=== PATIENT | female | born 2000 | race Asian ===

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

== ENCOUNTER 2023-07-09 15:47 | Emergency (ER) | payer OTHER, SELFPAY ==
[2023-07-09 15:51] VITALS: BP 102/68; PULSE 108; RESP 18; TEMP 36.4; O2SAT 99; BMI 24.2
--- NOTE | 2023-07-09 15:57 | ED_ITS ---
HPI - General Adult General Date Seen: 07/09/23 Chief complaint: Nausea/Vomiting Stated complaint: possible food poisoning Time Seen by Provider: 07/09/23 15:50 History of Present Illness HPI narrative: 22 yo generally healthy F presents to the ER this afternoon for evaluation of nausea and vomiting. She ate dinner yesterday and ate some chicken that might have been undercooked. Yesterday evening around 11:00 p.m. she started to feel a bit off. She felt bloated. She vomited 3 or 4 times last night and began having watery diarrhea. She is also having crampy pain in her abdomen. She has had a fever up to 100.5. She is feeling weak from dehydration. No other known sick contacts. 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 She did not travel abroad. No known sick contacts. No recent antibiotics. No history of autoimmune diseases, Crohn's, or C diff. Related Data Home Medications Medication Instructions Recorded Confirmed fluoxetine .ROUTE 12/24/21 Allergies Allergy/AdvReac Type Severity Reaction Status Date / Time No Known Drug Allergies Allergy Verified 12/24/21 15:36 [facility] Social History Smoking Status: Never smoker Do you use any of these nicotine containing products: None How often do you have a drink containing alcohol: never How often do you have six or more drinks on one occasion: Never AUDIT-C Alcohol total score: 0 Non-prescribed substance use: denies use Exam Narrative: Exam Narrative: Constitutional: Appears well-developed and well-nourished. Alert. Conversant. Non toxic. HENT: Head: Atraumatic. Nose: Nose normal. Mouth/Throat: Oral mucosa is clear but dry, not desiccated or cracked. no trismus. Pharynx normal. Eyes: Conjunctivae normal. EOM normal. Pupils equal, round, and reactive to light. No scleral icterus. Neck: Normal range of motion. Neck supple. No tracheal deviation present. Cardiovascular: Normal rate, regular rhythm. No gallop. No friction rub. No murmur heard. Symmetric radial artery pulses Pulmonary/Chest: Effort normal. No stridor. No respiratory distress. No wheezes. No rales. No rhonchi . No tenderness. Abdominal: Soft. Bowel sounds normal. No distension. No mass. Mild lower abdominal tenderness. She reacts most to palpation when I palpate her right lower quadrant, but she says she is reacting because she is ticklish. No rebound. No guarding. No CVA tenderness Musculoskeletal: RUE: Normal range of motion. No tenderness. No deformity LUE: Normal range of motion. No tenderness. No deformity RLE: Normal range of motion. No edema. No tenderness. No deformity LLE: Normal range of motion. No edema. No tenderness. No deformity Neurological: Alert and oriented to person, place, and time. Normal strength. CN II-VII intact. No sensory deficit. GCS eye subscore is 4. GCS verbal subscore is 5. GCS motor subscore is 6. Normal coordination Skin: Skin is warm and dry. No rash noted. No pallor. Normal capillary refill. Psychiatric: Normal mood. Normal affect. Const: Vital Signs, click to edit/add: Vital Signs - 24 hr 07/09/23 15:51 Temperature 97.6 F Pulse Rate [Pulse Oximeter] 108 H Respiratory Rate 18 Blood Pressure [Ri ght Upper Arm] 102/68 Pulse Oximetry 99 Oxygen Delivery Me thod Room Air Course Vital Signs Vital signs: Initial Vital Signs Temperature 97.6 F 07/09/23 15:51 Temperature Source Temporal Artery Scan 07/09/23 15:51 Pulse Rate 108 H 07/09/23 15:51 Respiratory Rate 18 07/09/23 15:51 Blood Pressure 102/68 07/09/23 15:51 Blood Pressure Mean 79 07/09/23 15:51 Blood Pressure Position Sitting 07/09/23 15:51 Pulse Oximetry 99 07/09/23 15:51 Oxygen Delivery Method Room Air 07/09/23 15:51 Vital Signs Temperature 97.6 F 07/09/23 15:51 Pulse Rate 108 H 07/09/23 15:51 Respiratory Rate 18 07/09/23 15:51 Blood Pressure 102/68 07/09/23 15:51 Pulse Oximetry 99 07/09/23 15:51 Oxygen Delivery Method Room Air 07/09/23 15:51 Temperature 97.6 F 07/09/23 15:51 Pulse Rate 108 H 07/09/23 15:51 Respiratory Rate 18 07/09/23 15:51 Blood Pressure 102/68 07/09/23 15:51 Pulse Oximetry 99 07/09/23 15:51 Oxygen Delivery Method Room Air 07/09/23 15:51 Medications Administered Medications: Discontinued Medications Generic Name Dose Route Start Last Admin Trade Name Santy PRN Reason Stop Dose Admin Ondansetron HCl 4 mg 07/09/23 16:22 07/09/23 16:23 Ondansetron Odt 4 Mg Tab PO 07/09/23 16:23 4 mg ONCE ONE Administration Medical Decision Making MDM Narrative Medical decision making narrative: This patient presents with vomiting that began overnight last night with 3 or 4 episodes of vomiting, and nausea persisting through to this after and 1 episode of loose stool and diarrhea this morning.. The patient's symptoms and exam could be consistent with a viral GI infection. She did eat some undercooked chicken yesterday which may be a potential source for contaminated food. With undercooked chicken, consider possible bacterial enteritis. There is no high fever, severe pain, bilious or bloody emesis, blood or mucous in the stool, severe abdominal pain, or other clear signs for a bacterial infection. No recent travel or high risk exposure for baceraial pathogen. No recent antibiotics or risk factors for C. diff. consider other causes for abdominal discomfort and vomiting, but at this time I don't see any evidence for appendicitis, bowel obstruction, abscess, bowel perforation, or other surgical emergency. After meds given the patient is feeling better. At this point, the patient is non-septic appearing and well hydrated.I think the patient can be managed as an outpatient. Will hold off on labs. Discussed with the patient and her family the possibility (very unlikely) of other conditions such as appendicitis. Would hold off on CT imaging for now. We have discussed oral rehydration strategies. They understand and can perform the needed interventions at home. I have provided a prescription for antiemetics to facilitate oral hydration (Zofran ODT). We have discussed the signs and symptoms of worsening dehydration. They understand the need for immediate reevaluation if any of these symptoms occur. They are also directed to obtain close outpatient follow up within 2-3 days. Discharge Plan Discharge Clinical Impression: Nausea vomiting and diarrhea Patient Disposition: Home, Self-Care Condition: Stable Instructions: Acute Nausea and Vomiting (DC), Acute Diarrhea (ED) Additional Instructions: As we discussed, at this time we suspect that year illnesses probably an infection the picked up from contaminated food (food poisoning). This is likely viral and will get better on its own within the next 1-2 days. However, if you have worsening symptoms such as high fever, bloody vomiting, bloody or mucousy stool, severe abdominal pain, you should come back to the ER right away. If you are not completely better by Monday come back to the ER or be checked by your student health. Remember that you are probably contagious while your sick. Do not share any cups or so for with any other people. Wash her hands frequently especially after go to the bathroom. Prescriptions: No Action fluoxetine [Prozac] .ROUTE Follow Up/Referrals: Provider,Not a Local [Primary Care Provider] - Stand Alone Forms: [employer] Info Instructions
[2023-07-09] MEDS: ONDANSETRON ODT 4 MG TAB PO (16:23)
== END 2023-07-09 17:42 | disposition home or self-care (01) ==
PROVIDERS: Emergency Provider Emergency Medicine
DX: R11.2 Nausea with vomiting, unspecified (principal); R19.7 Diarrhea, unspecified
CPT/HCPCS: 99283; 99284; A9270

== ENCOUNTER 2024-05-02 17:38 | Emergency (ER) | payer OTHER, SELFPAY ==
[2024-05-02 17:46] VITALS: BP 101/66; PULSE 98; RESP 20; TEMP 36.6; O2SAT 99; BMI 24.2
--- NOTE | 2024-05-02 19:22 | ED_ITS ---
HPI - Ear Problem General Chief complaint: Ear/Nose/Throat Problem Stated complaint: ear infection Time Seen by Provider: 05/02/24 19:14 History of Present Illness HPI Narrative: This 23-year-old female comes in reporting bilateral ear pain left significantly greater than right. She does have some nasal congestion but does not report any cough, shortness of breath, or fever. She states that she has had some discomfort over the past 2 or 3 weeks but it is markedly worse recently. Related Data Home Medications ?Medication ?Instructions ?Recorded ?Confirmed fluoxetine .ROUTE 12/24/21 Previous Rx's ?Medication ?Instructions ?Recorded amoxicillin 500 mg capsule 500 mg PO TID 7 days #21 caps 05/02/24 Allergies Allergy/AdvReac Type Severity Reaction Status Date / Time No Known Drug Allergies Allergy Verified 12/24/21 15:36 Review of Systems Status of ROS: Reports: 10 or more systems reviewed and unremarkable except as noted in History and below Narrative: Constitutional: No fevers, no weight gain or loss. Eyes: No discharge. No vision changes. HENT: Nasal congestion. Left ear pain as described above. Cardiovascular: No chest pain, no palpitations. Respiratory: No shortness of breath, no wheezes, no cough. Gastrointestinal: No abdominal pain, no vomiting, no diarrhea. Genitourinary: No dysuria, no hematuria. Musculoskeletal: Normal range of motion. Skin: No rashes, no pruritis. Neurological: No dizziness, weakness, sensory change, speech change. Endo/Heme/Allergies: No bruising or bleeding. No polydipsia. Pysch: no suicidality, no anxiety, no insomnia. All other systems reviewed and are negative. [facility] Social History Smoking Status: Never smoker Do you use any of these nicotine containing products: None How often do you have a drink containing alcohol: never How often do you have six or more drinks on one occasion: Never AUDIT-C Alcohol total score: 0 Non-prescribed substance use: denies use Exam Narrative: Exam Narrative: Constitutional: Well-developed, well-nourished, no acute distress. HEENT: Normocephalic, atraumatic. Right tympanic membrane appears normal. Left tympanic membrane is dull with purulence typical of otitis media. There is also some cerumen in the auditory canal. Neck: Normal range of motion. Nontender. Supple. Heart: Intact distal pulses. Lungs: No chest discomfort. No wheezes, rhonchi, or rales. Abdomen: Nontender. Back: Normal range of motion. Extremities: Normal range of motion. No injury. Skin: Intact. No rash. Warm. No erythema or pallor. Neurologic: No altered sensation. No weakness. Alert and oriented. Psychiatric: No suicidality. No anxiety or depression. No insomnia. Nursing notes and vitals signs are reviewed. Const: Vital Signs, click to edit/add: Vital Signs - 24 hr 05/02/24 17:46 Temperature 97.8 F Pulse Rate [Pulse Oximeter] 98 Respiratory Rate 20 Blood Pressure [Ri ght Upper Arm] 101/66 Pulse Oximetry 99 Oxygen Delivery Me thod Room Air Course Vital Signs Vital signs: Initial Vital Signs Temperature 97.8 F 05/02/24 17:46 Temperature Source Oral 05/02/24 17:46 Pulse Rate 98 05/02/24 17:46 Pulse Rhythm Regular 05/02/24 17:46 Respiratory Rate 20 05/02/24 17:46 Blood Pressure 101/66 05/02/24 17:46 Blood Pressure Mean 77 05/02/24 17:46 Blood Pressure Position Sitting 05/02/24 17:46 Pulse Oximetry 99 05/02/24 17:46 Oxygen Delivery Method Room Air 05/02/24 17:46 Vital Signs Temperature 97.8 F 05/02/24 17:46 Pulse Rate 98 05/02/24 17:46 Respiratory Rate 20 05/02/24 17:46 Blood Pressure 101/66 05/02/24 17:46 Pulse Oximetry 99 05/02/24 17:46 Oxygen Delivery Method Room Air 05/02/24 17:46 Temperature 97.8 F 05/02/24 17:46 Pulse Rate 98 05/02/24 17:46 Respiratory Rate 20 05/02/24 17:46 Blood Pressure 101/66 05/02/24 17:46 Pulse Oximetry 99 05/02/24 17:46 Oxygen Delivery Method Room Air 05/02/24 17:46 Discharge Plan Discharge Clinical Impression: Otitis media Patient Disposition: Home, Self-Care Condition: Stable Additional Instructions: Take medication as prescribed. Use [id number] medicines also as needed and directed. Follow up with MD return if worsening. Prescriptions: New amoxicillin 500 mg capsule 500 mg PO TID 7 Days Qty: 21 0RF No Action fluoxetine [Prozac] .ROUTE Follow Up/Referrals: Provider,Not a Local [Primary Care Provider] - Stand Alone Forms: [employer] Info Instructions
== END 2024-05-02 20:09 | disposition home or self-care (01) ==
LOC: ED 19:46
PROVIDERS: Emergency Provider Emergency Medicine Emergency Medical Services
DX: H66.93 Otitis media, unspecified, bilateral (principal)
CPT/HCPCS: 99283; 99284